=== PATIENT | female | born 1990 | race Caucasian/White ===

== ENCOUNTER 2016-09-03 22:03 | Emergency (ER) | payer OTHER ==
[~2016-09-03] VITALS: Ht 160 cm; Wt 131.8 kg
[2016-09-03 22:07] VITALS: BP 139/100; PULSE 87; RESP 16; O2SAT 98
[2016-09-03 22:50] LABS: Mean Corpuscular Hemoglobin 28.5 pg (27.0-35.0); Mean Corpuscular Volume 86.6 fL (81-100)
[2016-09-03 22:51] LABS: BASOPHILS % (AUTO) 0.4 % (0-3); NEUTROPHILS % (AUTO) 72.8 % (40-74); Platelet Count 337 bil/L (150-400)
[2016-09-03 23:11] LABS: Magnesium 2.1 mg/dL (1.6-2.6)
--- NOTE | 2016-09-04 | ED.REPORT ---
HPI-Abd Pain F Under 41 Date of Service September 04, 2016 ED Provider: Dr. 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 The pain is sharp and radiates into her upper abdomen bilaterally. Pt c/o associated nausea , vomiting (5x today), diarrhea, darker stool, darker urine and dyspnea secondary to pain. Pt denies SOB, constipation. Pt also admits to a history of undiagnosed acid reflux, which she treats with TUMS. Within the past 2-3 weeks, pt has been sick (vomiting, fever, chills), but pt felt better after drinking fluids. Pain is currently mild after vomiting. The patient's last bowel movement was several hours ago with loose consistency. Pt has a history of cholecystectomy with no complications in 12/19. Pt denies having any other abdominal issues. 3 days ago, pt had similar Sx and went to the urgent care clinic in [place],and per pt, they believed that one of the ducts to her liver was blocked. Per pt, they did an US, and X-ray, but not a CT. The pain didn't return once the pain meds wore off, so she was advised to return if the Sx returned. Sx were recurring for the past 3 nights with pain levels similar to original Sx. Nursing Notes Stated Complaint: ABDOMINAL PAIN Chief Complaint: Female Abdominal Pain Nursing Notes Reviewed: Yes Allergies: Coded Allergies: No Known Allergies (Unverified Allergy, Unknown, 09/03/16) General Time Seen by MD: 00:00 Chief Complaint Other (Back pain) Hx Obtained From: Patient Arrived By: Walk-in Sudden in Onset?: No Onset Occurred: 4 days ago Symptom Duration: Since onset Progression since Onset: Waxes and wanes Location: : Back Quality: Painful, Sharp Radiation: : LUQ: RUQ Severity: Current: Moderate Severity: Maximum: Moderate Recent Healthcare: Recent doctor visit Similar Sx Previous: Yes Past Medical History Past Medical History Scoliosis Heart murmur Roth syndrome Aortic coarctation Horseshoe kidney Denies: Congestive heart failure, Diabetes mellitus, Hypertension Past Surgical History Patient went to urgent care clinic 4 days ago for similar Sx History of cholecystectomy Open heart surgery at age 6 Reports: Cholecystectomy Smoking History Unknown if Ever Smoker Social History Pt lives in [place], but her parents live in [facility] Alcohol Use: "Social" Drug Use: Denies drug use Other Social History: Good social support Ambulatory Status Independent Review of Systems + darker urine, darker stool GI: Reports: Abdominal pain, Nausea, Vomiting Musculoskeletal: Reports: Back pain Complete sys rev & neg: except as marked. Physical Exam Initial Vital Signs Vital Signs (First) Date Time Temp Pulse Resp B/P Pulse Ox O2 Delivery O2 Flow Rate FiO2 09/03/16 22:07 36.7 87 16 139/100 98 Room Air Initial VS: Reviewed Head / Eyes: Atraumatic, Normocephalic, PERRL ENT: Mucous membranes moist, Conjunctiva normal, No scleral icterus Neck: Supple, Full range of motion Extremities: Vascular intact, Neuro intact Skin: Warm, Dry, No cyanosis Neurologic: Alert, Oriented, Nonfocal Psychiatric: Mood/affect normal, Behavior normal, Normal thought content General/Constitutional: Awake, Alert, No acute distress, Cooperative, Not toxic appearing Respiratory / Chest: Atraumatic, Breath sounds NL, Breath sounds = bilat, No respiratory distress, No rales, No rhonchi, No wheezing Cardiovascular: Heart rate NL, Regular rhythm Heart Sounds / Murmur: Positive: Systolic murmur present.. (III/ at left upper sternal border) Abdomen: Atraumatic, Soft, No guarding, No rebound Tenderness/Guarding/Rebound: Positive: Tender epigastric (Mild) Back: Atraumatic, Inspection NL, Non-tender, No CVA tenderness Interpretation & Diagnostics Interpretation & Diagnostics: Abdomen: Impression: Fatty liver Possible horseshoe kidney Mild fullness of the right renal collecting system No ultrasound evidence of renal stones Transmitted to the ED at 01:55 by Chidi Morrison Lab Results Interpretation Result Diagram: 09/03/16 2240 09/03/16 2240 Test 09/03/16 22:40 09/04/16 01:45 White Blood Count 7.3th/mm3 (3.8-10.1) Red Blood Count 4.92mil/mm3 (3.90-5.20) Hemoglobin 14.0g/dL (12.0-15.6) Hematocrit 42.6% (35.0-46.0) Mean Corpuscular Volume 86.6fL (81-100) Mean Corpuscular Hemoglobin 28.5pg (27.0-35.0) Mean Corpuscular Hemoglobin Concent 32.9% (32.0-37.0) Red Cell Distribution Width 14.9% (12.3-15.4) Platelet Count 337bil/L (150-400) Neutrophils (%) (Auto) 72.8% (40-74) Lymphocytes (%) (Auto) 17.5% (14-46) Monocytes (%) (Auto) 8.0% (4-12) Eosinophils (%) (Auto) 1.0% (0-5) Basophils (%) (Auto) 0.4% (0-3) Band Neutrophils % 0% (1-5) Sodium Level 140mEq/L (134-144) Potassium Level 3.8mEq/L (3.5-5.2) Chloride Level 103mEq/L (97-108) Carbon Dioxide Level 21mmol/L (18-29) Blood Urea Nitrogen 7mg/dL (6-20) Creatinine 0.51mg/dL (0.57-1.00) Estimat Glomerular Filtration Rate 210mL/min (>59) Glucose Level 105mg/dL (60-99) Calcium Level 9.5mg/dL (8.5-10.1) Magnesium Level 2.1mg/dL (1.6-2.6) Total Bilirubin 3.2mg/dL (0.0-1.2) Aspartate Amino Transf (AST/SGOT) 237U/L (0-50) Alanine Aminotransferase (ALT/SGPT) 358U/L (0-32) Alkaline Phosphatase 278U/L (25-150) Total Protein 7.8g/dL (6.4-8.4) Albumin 4.2g/dL (3.4-5.0) Lipase 60U/L (13-60) Hold [place]don Top Tube Received (Received) Urine Color Mikado (YELLOW) Urine Appearance Hazy (CLEAR,HAZY) Urine pH Color interference Urine Specific [place] 1.025 (1.003-1.035) Urine Protein Color interferencemg/dL Urine Glucose (UA) Color interferencemg/dL Urine Ketones Color interferencemg/dL Urine Occult Blood Color interference Urine Nitrite Color interference Urine Bilirubin Color interference Urine Urobilinogen Color interferencemg/dL Urine Leukocyte Esterase Color interference Urine RBC 0-2/hpf (0-2) Urine WBC 0-5/hpf (0-5) Urine Epithelial Cells Moderate/hpf (NONE-MOD) Urine Crystals Oxalic acid crystals (NONE Urine Bacteria Few/hpf (NONE-FEW) Urine Hyaline Casts None/lpf (NONE) Urine Granular Casts None seen (NONE SEEN) Urine Waxy Casts None seen (NONE SEEN) Urine Red Blood Cell Casts None seen (NONE SEEN) Urine White Blood Cell Casts None seen (NONE SEEN) Urine Mucus Present (None Seen) Urine Trichomonas None seen (NONE SEEN) Urine Yeast None (NONE SEEN) Urinalysis Comment None Urine Culture Reflexed Not indicated Hold Urine Received (Received) CT Abd / Pelvis Interpretation IMPRESSSION: Choledocholithiasis - Chidi Morrison MD 02:12 Study type: Abdominal CT IV contrast Interpretation / Wet Read by: Interpret - Radiologist Re-Eval/Medical Decision Med Decision/Clinical Course 26-year-old female presenting with choledocholithiasis with symptoms for the past 4 days. No leukocytosis and vitals are normal. Transaminitis is noted as well as elevated alkaline phosphatase and bilirubin. Urine has 3+ bilirubin and 12 urobilinogen. Pain has improved since vomiting 3 times at the time of arrival here at the ER. CT shows 3 mm obstructing stone in the distal common bile duct. ERCP is not offered at our facility this weekend so patient's insurance was contacted and they are arranging for transfer to [facility] where Dr. Rain has accepted the patient and will perform an ERCP over the weekend. There is currently no hospital beds and we will be contacted when a bed opens up. Transfer/consent paperwork was signed. Patient will await transport/bed availability here. Source of Hx: Old records Re-Evaluation/Progress #1: Time of Eval: 02:33 Re-Evaluation/Progress Note: Pt rechecked. Informed pt of diagnosis. All questions were addressed. Re-Evaluation/Progress #2: Time of Eval: 03:00 Re-Evaluation/Progress Note: Pt rechecked. Informed pt of plan for transfer. Pt understands and agrees with plan for transfer. All questions addressed. Counseled Regarding: Diagnosis, Lab results, Need for transfer Discharge & Departure Primary Impression: Choledocholithiasis Additional Impressions: Abdominal pain Abdominal location: upper abdomen, unspecified Qualified Code: R10.10 - Upper abdominal pain, unspecified Transaminitis Elevated bilirubin Disposition: Transfer, Acute Care Facility Transfer Reason: Higher level of care Spoke with: Specialty physician Patient Status: Stable Patient Informed: Yes Discharge Condition All VS Reviewed: Yes Condition: Stable Referrals: OTHER,PHYSICIAN (PCP) (Family) Scribe Attestation Portions of this note were transcribed by Maurizio Brink and Oxana Osman. I, Dr. Cespedes personally performed the history, physical exam and medical decision-making; I reviewed and confirmed the accuracy of the information in the transcribed note. Signed by: Maurizio Brink and Martha Soliman, and [phone]. copies to: KARLEE,Shahab Forman DO September 04, 2016 00:00 Oxana Ward September 04, 2016 00:41 MAURIZIO BRINK September 04, 2016 03:13
[2016-09-04 00:11] VITALS: BP 135/91; PULSE 73; RESP 11; O2SAT 99
[2016-09-04] MEDS ORDERED: Iohexol 300 mg/mL 30 mL Inj PO ONE (01:35)
[2016-09-04 02:46] LABS: APPEARANCE,URINE HAZY (CLEAR,HAZY); COLOR,URINE ORANGE (YELLOW); OCCULT BLOOD,URINE COLOR INTERFERENCE (NEGATIVE); PH,URINE COLOR INTERFERENCE (5.0-8.0); UROBILINOGEN,URINE COLOR INTERFERENCE mg/dL (NORMAL)
[2016-09-04 02:58] VITALS: BP 124/84; PULSE 90; RESP 16; O2SAT 97
[2016-09-04] MEDS ORDERED: Ondansetron 2 mg/mL 2 mL Inj IVPUSH PRN (04:20)
[2016-09-04] MEDS ORDERED: HYDROmorphone 0.5 mg/0.5 mL iSecure Syringe IVPUSH PRN (04:20)
[2016-09-04 04:39] VITALS: BP 113/84; PULSE 94; O2SAT 96
[2016-09-04 06:20] VITALS: BP 141/88; RESP 17; O2SAT 95
--- NOTE | 2016-09-04 08:10 | DRSVH ---
PROCEDURE: US ABDOMEN INDICATIONS: transaminitis, abdom pain TECHNIQUE: Real-time scanning was performed of the abdominal and retroperitoneal organs, with image documentatio n. COMPARISON: [facility] Ultrasound [facility], US, ABDOMEN SONOGRAM, 12/18/2009, 13:07. FINDINGS: Liver length: 17.47 cm Gallbladder Wall Thickness: Surgically absent Spleen length: 11.02 cm Right kidney length: 10.44 cm Left kidney length: 9.51 cm Aorta(Proximal): 2.09 cm Aorta(Mid): 1.62 cm Aorta(Distal): 1.17 cm RCIA: 9.50 mm LCIA: 9.30 mm Liver: Homogeneously hyperechoic liver consistent with fatty infiltration. No hepatic masses. Gallbladder: Surgically absent. Biliary ducts: Obscured by bowel gas. Pancreas: Visualized portions of the pancreas are sonographically normal. Spleen: Spleen is normal in size and homogeneous in echotexture. Kidneys: Kidneys are normal in size and echotexture. Fullness of the right renal collecting system w ith no distinct hydronephrosis or nephrolithiasis. No solid masses. Possible horseshoe kidney orien tation of the inferior poles. Aorta: Visualized aorta is normal in caliber at less than 3 cm. Iliacs: Proximal common iliac arteries are normal in caliber at less than 2.5 cm. IVC: Intrahepatic inferior vena cava is patent. Miscellaneous: No free abdominal fluid. IMPRESSION: 1. Fatty infiltration of the liver. 2. Likely horseshoe kidneys. Fullness of the right renal collecting system with no distinct hydroneph rosis. 3. The biliary system is obscured. 4. There are no discrepancies with the pulmonary report. Dictated by: Primo Monique M.D. on 09/04/2016 at 8:04 Approved by: Primo Monique M.D. on 09/04/2016 at 8:09
[2016-09-04 08:12] VITALS: BP 122/78; PULSE 93; RESP 18; O2SAT 100
--- NOTE | 2016-09-04 10:10 | DRSVH ---
PROCEDURE: CT ABDOMEN AND PELVIS WITH CONTRAST ([id number]) INDICATIONS: abd pain, elevated LFTS TECHNIQUE: After the administration of intravenous contrast, 5 mm thick sections acquired from the diaphragm to the symphysis. 5 mm coronal and sagittal reformats were acquired. For radiation dose reduction, the following was used: automated exposure control, adjustment of mA and/or kV according to patient siz e. COMPARISON: None. FINDINGS: Image quality: Excellent. ABDOMEN: Lung bases: Lung bases are clear. Heart size is normal. Solid organs: Fatty infiltration of the liver. No hepatic masses. Surgical clips along the anterior aspect of the liver. Cholecystectomy. There is a 6 x 10 mm high density mass in the common bile duct which is enlarged measuring 9 mm. The pancreas, spleen, and adrenal glands are normal. Horseshoe kidn ey. Prominence of the right renal collecting system is more consistent with an extra renal pelvis mary jane n with hydronephrosis. No ureterectasis.. Peritoneum and bowel: Bowel loops demonstrate normal wall thickness and caliber. No free fluid or a ir. The appendix is not identified. There are no secondary signs of acute appendicitis. Nodes and vessels: No retroperitoneal or mesenteric adenopathy by size criteria. Aorta and inferior vena cava are normal in size. Miscellaneous: No ventral hernias. PELVIS: Genitourinary: Bladder wall thickness is normal. Miscellaneous: No inguinal hernias or adenopathy. Bones: No suspicious bony lesions. No vertebral body compression fractures. IMPRESSION: 1. Linear mass in the common bile duct may represent a cholecystectomy clip which has migrated into t he common bile duct or choledocholithiasis. 2. Horseshoe kidney. Right-sided extrarenal pelvis. CT findings do not support hydronephrosis. 3. Fatty infiltration of the liver. 4. There are no discrepancies with the preliminary report. Dictated by: Primo Monique M.D. on 09/04/2016 at 10:01 Approved by: Primo Monique M.D. on 09/04/2016 at 10:08
== END 2016-09-04 08:25 | disposition short-term general hospital (02) ==
LOC: SED 22:03
DX: K80.50 Calculus of bile duct without cholangitis or cholecystitis without obstruction (principal); R10.10 Upper abdominal pain, unspecified; R74.0 Nonspecific elevation of levels of transaminase and lactic acid dehydrogenase [LDH]; E80.7 Disorder of bilirubin metabolism, unspecified; R11.2 Nausea with vomiting, unspecified; R19.7 Diarrhea, unspecified; R06.00 Dyspnea, unspecified; Q96.9 Turner's syndrome, unspecified
CPT/HCPCS: 36415; 74177; 76700; 80053; 81000; 81025; 83690; 83735; 85025; 96374; 99285; J2405; Q9967